=== PATIENT | male | born 1945 | race African-American/Black ===

== ENCOUNTER 2018-10-24 09:16 | Day surgery (SDC) | payer OTHER | END 2018-10-24 11:19 | disposition home or self-care (01) | LOC: JASU-ENDO 09:16 ==

== ENCOUNTER 2018-12-12 09:02 | Day surgery (SDC) | payer OTHER ==
[2018-10-11 15:07] VITALS: BMI 24.5
[2018-12-12 10:45] VITALS: TEMP 97.3
[2018-12-12 12:16] VITALS: BP 136/69; PULSE 57
--- NOTE | 2018-12-13 17:55 | PATH ---
Surgical Pathology Report Patient Name: IGNACIO APONTE [facility]. Rec. #: [id number] /Age/Gender: 1945 (Age: 73) / M Account: [id number] Location: [facility]-ENDOSCOPY Taken: 12/12/2018 Received: 12/12/2018 Reported: 12/13/2018 Physicians: Obed Gold D.O. Specimen(s) Received A: DISTAL TRANSVERSE COLON POLYP B: DESCENDING COLON POLYP Clinical History Colon cancer screening, anemia Postoperative diagnosis: Diverticulosis, polyps, hemorrhoids Final Diagnosis A. DISTAL TRANSVERSE COLON, POLYP, BIOPSY: TUBULAR ADENOMA. B. DESCENDING COLON, POLYP, BIOPSY: COLONIC MUCOSA WITH MILD FOCAL SUPERFICIAL HYPERPLASTIC FEATURES. Electronically Signed Denise Gillespie M.D. Gross Description A. Received in formalin, labeled "biopsy distal transverse colon polyp" is a arana, irregular portion of soft tissue measuring 0.4 cm. in greatest dimension. The specimen is submitted in toto in one cassette. B. Received in formalin, labeled "biopsy descending colon" is a arana, irregular portion of soft tissue measuring 0.3 cm. in greatest dimension. The specimen is submitted in toto in one cassette. 12/12/2018 saudi12/12/2018
== END 2018-12-12 12:16 | disposition home or self-care (01) ==
LOC: JASU-ENDO 09:02
PROVIDERS: ATTEND Internal Medicine Gastroenterology
PROC: 0DBL8ZX Excision of Transverse Colon, Via Natural or Artificial Opening Endoscopic, Diagnostic (ICD-10-PCS; 2018-12-12)
PROC: 0DBM8ZX Excision of Descending Colon, Via Natural or Artificial Opening Endoscopic, Diagnostic (ICD-10-PCS; principal; 2018-12-12 10:00)
DX: Z12.11 Encounter for screening for malignant neoplasm of colon (principal); K57.30 Diverticulosis of large intestine without perforation or abscess without bleeding; D12.4 Benign neoplasm of descending colon; D12.3 Benign neoplasm of transverse colon; K64.8 Other hemorrhoids
CPT/HCPCS: 88305-TC

== ENCOUNTER 2024-03-20 05:11 | Day surgery (SDC) | payer OTHER ==
[2024-03-12 12:59] VITALS: BMI 25.8
[2024-03-20 10:36] VITALS: TEMP 98
[2024-03-20 13:03] VITALS: BP 105/64; PULSE 68; RESP 18
== END 2024-03-20 13:46 | disposition home or self-care (01) ==
LOC: JASU-ENDO 05:11
PROVIDERS: ATTEND Internal Medicine Gastroenterology
PROC: 0DJD8ZZ Inspection of Lower Intestinal Tract, Via Natural or Artificial Opening Endoscopic (ICD-10-PCS; principal; 2024-03-20 11:00)
DX: Z12.11 Encounter for screening for malignant neoplasm of colon (principal); K57.30 Diverticulosis of large intestine without perforation or abscess without bleeding; K64.8 Other hemorrhoids; Z86.0100 Personal history of colon polyps, unspecified